=== PATIENT | female | born 1995 | race Caucasian/White ===

== ENCOUNTER 2019-11-11 21:40 | Observation (INO) ==
[2019-11-11 22:19] LABS: Amorphous Sediment,Urine Few per hpf (None-Few); Bacteria,Urine Few per hpf (None-Few); Bilirubin,Urine Negative (Negative); Blood,Urine Negative (Negative); Clarity,Urine Turbid (Clear); Color,Urine Light-Yellow (Yellow); Glucose,Urine (UA) Normal (Normal); Ketones,Urine Negative (Negative); Leukocyte Esterase,Urine Large (Negative); Mucus,Urine Few per lpf (None-Few); Nitrite,Urine Negative (Negative); Protein,Urine Trace mg/dL (Neg-Trace); Specific Gravity,Urine 1.017 (1.010-1.025); Squamous Epithelial Cell,Urine Moderate per hpf (None-Few); Urobilinogen,Urine Normal (Normal); WBC,Urine 30-50 per hpf (0-3)
[2019-11-11 22:26] LABS: Amphetamine Screen,Urine Negative ng/mL (Cutoff=1000)
[2019-11-11 22:27] LABS: Barbiturate Screen,Urine Negative ng/mL (Cutoff=200); Benzodiazepines Screen,Urine Negative ng/mL (Cutoff=200); Cannabinoid Screen,Urine Positive ng/mL (Cutoff = 50); Cocaine Screen,Urine Negative ng/mL (Cutoff= 300); Opiate Screen,Urine Negative ng/mL (Cutoff=300); Phencyclidine Screen,Urine Negative ng/mL (Cutoff=25)
[2019-11-11 23:51] LABS: Candida DNA DETECTED (Not Detect); Gardnerella DNA Not Detected (Not Detect); Trichomonas DNA DETECTED (Not Detect)
== END 2019-11-11 22:36 | disposition home or self-care (01) ==
LOC: 1NENULAB
PROVIDERS: ADMIT Student in an Organized Health Care Education/Training Program; ATTEND Student in an Organized Health Care Education/Training Program

== ENCOUNTER 2019-11-29 06:00 | Inpatient (IN) ==
[2019-11-29] MEDS ORDERED: Naloxone 0.4 MG/ML INJ IVP PRN (06:20)
[2019-11-29] MEDS ORDERED: Famotidine 20 MG/2 ML VIAL IVP PRN (06:20)
[2019-11-29] MEDS ORDERED: miSOPROStoL 25 MCG TABLET PO PRN (06:20)
[2019-11-29] MEDS ORDERED: Ondansetron 4 MG/2 ML VIAL IVP PRN (06:20)
[2019-11-29] MEDS ORDERED: Lidocaine 1% 20 ML MDV INFILT PRN (06:20)
[2019-11-29] MEDS ORDERED: Metoclopramide 10 MG/2 ML VIAL IVP PRN (06:20)
[2019-11-29] MEDS ORDERED: Azithromycin 500 MG in 0.9 % Sodium Chloride 250 ML IVPB ONE (06:20)
[2019-11-29] MEDS ORDERED: Ringers Solution, Lactated 1,000 ML IVC SCH (06:30)
[2019-11-29] MEDS ORDERED: Heparin 1,000 UNITS/500 mL 500 ML ONE (08:05)
[2019-11-29] MEDS ORDERED: Oxytocin 20 units/ LR 1000 mL 20 UNIT/1,000 ML BAG IVC SCH ×2 (08:30→18:18)
[2019-11-29 08:39] LABS: VBG Base Excess -2 mEq/L; VBG Chloride 104 mEq/L (98-107); VBG Glucose 93 mg/dl (65-95); VBG HCO3 21 mEq/L (21-27); VBG Oxygen Saturation 86 %; VBG PCO2 29 mmHg (41-51); VBG PH 7.45 pH Units (7.32-7.42); VBG PO2 47 mmHg (25-50); VBG Total CO2 21 mEq/L
[2019-11-29 09:07] LABS: Basophils % 0.2 %; Eosinophils # 0.1 K/mcL (0.0-0.6); Eosinophils % 0.6 %; Hematocrit 28.1 % (35.3-44.9); Hemoglobin 8.8 g/dL (11.5-15.4); Immature Granulocytes % 0.9 % (0-4); Lymphocytes # 1.7 K/mcL (0.6-4.6); Lymphocytes % 18.2 %; Mean Corpuscular HGB Conc 31.3 g/dL (31.6-35.5); Mean Corpuscular Hemoglobin 25.2 pg (28.0-33.3); Mean Corpuscular Volume 80.5 fL (83.0-100.0); Mean Platelet Volume 10.3 fL (9.4-12.4); Monocytes # 0.7 K/mcL (0.0-1.3); Neutrophils # 6.9 K/mcL (1.6-8.9); Nucleated Red Blood Cells 0.2 /100 WBC (0); Platelet Count 304 K/mcL (140-400); Red Blood Count 3.49 M/mcL (3.82-4.97); Red Cell Distribution Width 14.9 % (11.5-14.5); Segmented Neutrophils % 73.1 %; White Blood Count 9.4 K/mcL (4.3-11.1)
[2019-11-29] MEDS ORDERED: Lidocaine -MPF 2% 5 ML VIAL ONE (10:28)
[2019-11-29] MEDS ORDERED: Bupivacaine-MPF 0.25% 10 ML VIAL EP ONE (10:42)
[2019-11-29] MEDS ORDERED: *HR* FentaNYL (PF) 100 MCG/2 ML VIAL EP ONE (10:42)
[2019-11-29] MEDS ORDERED: EPHEDrine 50 MG/ML VIAL IVP PRN (10:42)
[2019-11-29] MEDS ORDERED: Epidural Premix (fent/bupiv) 110 ML EP SCH (10:45)
[2019-11-29] MEDS ORDERED: Bupivacaine-MPF 0.25% 10 ML VIAL ONE (11:01)
[2019-11-29] MEDS ORDERED: *HR* FentaNYL (PF) 100 MCG/2 ML VIAL ONE (11:01)
[2019-11-29 13:50] LABS: Amphetamine Screen,Urine Negative ng/mL (Cutoff=1000); Barbiturate Screen,Urine Negative ng/mL (Cutoff=200); Benzodiazepines Screen,Urine Negative ng/mL (Cutoff=200); Cannabinoid Screen,Urine Negative ng/mL (Cutoff = 50); Cocaine Screen,Urine Negative ng/mL (Cutoff= 300); Opiate Screen,Urine Negative ng/mL (Cutoff=300); Phencyclidine Screen,Urine Negative ng/mL (Cutoff=25)
[2019-11-29] MEDS ORDERED: Rho Immune Globulin 1,500 UNIT SYRINGE IM PRN (18:18)
[2019-11-29] MEDS ORDERED: Benzocaine/Menthol 56 GM AEROSOL SPRAY TP PRN (18:18)
[2019-11-29] MEDS ORDERED: Acetaminophen 325 MG TABLET PO PRN (18:18)
[2019-11-29] MEDS ORDERED: Lanolin 7 G OINT...G. TP PRN (18:18)
[2019-11-30] MEDS: Ibuprofen 600 MG TABLET PO PRN ×2 (02:12→14:47)
[2019-11-30 06:29] LABS: Basophils % 0.1 %; Eosinophils # 0.1 K/mcL (0.0-0.6); Eosinophils % 1.1 %; Hematocrit 24.2 % (35.3-44.9); Hemoglobin 7.4 g/dL (11.5-15.4); Immature Granulocytes % 0.7 % (0-4); Lymphocytes # 1.9 K/mcL (0.6-4.6); Lymphocytes % 19.5 %; Mean Corpuscular HGB Conc 30.6 g/dL (31.6-35.5); Mean Corpuscular Hemoglobin 24.4 pg (28.0-33.3); Mean Corpuscular Volume 79.9 fL (83.0-100.0); Mean Platelet Volume 10.7 fL (9.4-12.4); Monocytes # 0.6 K/mcL (0.0-1.3); Monocytes % 6.5 %; Neutrophils # 7.1 K/mcL (1.6-8.9); Nucleated Red Blood Cells 0.2 /100 WBC (0); Platelet Count 253 K/mcL (140-400); Red Blood Count 3.03 M/mcL (3.82-4.97); Segmented Neutrophils % 72.1 %; White Blood Count 9.9 K/mcL (4.3-11.1)
[2019-11-30] MEDS: Prenatal Vit/FA 1 EACH TABLET PO SCH (07:40)
[2019-11-30] MEDS ORDERED: NON-FORMULARY MEDICATION 1 EACH EACH (Prenatal Vits96/Iron Fum/Folic [Prenatal Tablet] 1 E PO SCH (09:00)
[2019-12-01 07:45] VITALS: BP 119/80
[2019-12-01] MEDS: Prenatal Vit/FA 1 EACH TABLET PO SCH (07:53)
[2019-12-01] MEDS: Ibuprofen 600 MG TABLET PO PRN (07:54)
== END 2019-12-01 10:48 | disposition home or self-care (01) | DRG 560 ==
LOC: 1NENULAB 06:19 → 1NENUOBS 18:17
PROVIDERS: ADMIT Obstetrics & Gynecology; ATTEND Obstetrics & Gynecology

== ENCOUNTER 2020-12-20 18:45 | Inpatient (IN) ==
[~2020-12-20 18:45] MED LIST: *HR* Oxytocin 10 UNIT/ML VIAL IM ONE; Famotidine 20 MG/2 ML VIAL IVP PRN; Methylergonovine 0.2 MG/ML AMPUL IM ONE; Metoclopramide 10 MG/2 ML VIAL IVP PRN; Naloxone 0.4 MG/ML INJ IVP PRN; Ondansetron 4 MG/2 ML VIAL IVP PRN; Ringers Solution, Lactated 1,000 ML IVC SCH; Ringers Solution, Lactated 1,000 ML ONE; miSOPROStoL 100 MCG TABLET RC ONE
[2020-12-20] MEDS ORDERED: *HR* FentaNYL (PF) 100 MCG/2 ML VIAL ONE ×2 (19:02→20:33)
[2020-12-20] MEDS ORDERED: Bupivacaine-MPF 0.25% 10 ML VIAL ONE (19:02)
[2020-12-20 19:40] LABS: Amphetamine Screen,Urine Negative ng/mL (Cutoff=1000); Barbiturate Screen,Urine Negative ng/mL (Cutoff=200); Benzodiazepines Screen,Urine Negative ng/mL (Cutoff=200); Cannabinoid Screen,Urine Positive ng/mL (Cutoff = 50); Cocaine Screen,Urine Negative ng/mL (Cutoff= 300); Opiate Screen,Urine Negative ng/mL (Cutoff=300); Phencyclidine Screen,Urine Negative ng/mL (Cutoff=25)
[2020-12-20] MEDS ORDERED: *HR* Propofol 200 MG/20 ML VIAL IVP ONE (20:33)
[2020-12-20] MEDS ORDERED: *HR* Succinylcholine 200 MG/10 ML VIAL IVP ONE ×2 (20:33)
[2020-12-20] MEDS ORDERED: *HR* Rocuronium Bromide 50 MG/5 ML VIAL ONE (20:34)
[2020-12-20] MEDS ORDERED: Ondansetron 4 MG/2 ML VIAL ONE (20:51)
[2020-12-21] MEDS ORDERED: Rho Immune Globulin 1,500 UNIT SYRINGE IM PRN (00:21)
[2020-12-21] MEDS ORDERED: Lanolin 7 G OINT...G. TP PRN (00:21)
[2020-12-21] MEDS ORDERED: Benzocaine/Menthol 56 GM AEROSOL SPRAY TP PRN (00:21)
[2020-12-21] MEDS ORDERED: Ondansetron ODT 4 MG TAB.RAPDIS SL PRN (00:21)
[2020-12-21] MEDS: Oxytocin 20 units/ LR 1000 mL 20 UNIT/1,000 ML BAG IVC SCH ×2 (01:09→09:12)
[2020-12-21] MEDS: Acetaminophen 325 MG TABLET PO SCH ×3 (01:12→17:06)
[2020-12-21] MEDS: Ibuprofen 600 MG TABLET PO SCH ×3 (01:13→17:07)
[2020-12-21] MEDS: Prenatal Vit/FA 1 EACH TABLET PO SCH (09:11)
[2020-12-21 09:46] LABS: Eosinophils % 0.1 %
[2020-12-21 09:47] LABS: Basophils % 0.2 %; Hematocrit 27.4 % (35.3-44.9); Hemoglobin 8.5 g/dL (11.5-15.4); Immature Granulocytes % 0.7 % (0-4); Immature Platelets 6.6 % (1.1-6.1); Lymphocytes # 1.4 K/mcL (0.6-4.6); Lymphocytes % 10.7 %; Mean Corpuscular Hemoglobin 24.4 pg (28.0-33.3); Mean Corpuscular Volume 78.5 fL (83.0-100.0); Mean Platelet Volume 10.8 fL (9.4-12.4); Monocytes # 0.8 K/mcL (0.0-1.3); Monocytes % 6.2 %; Platelet Count 267 K/mcL (140-400); Red Blood Count 3.49 M/mcL (3.82-4.97); Red Cell Distribution Width 14.4 % (11.5-14.5); Segmented Neutrophils % 82.1 %; White Blood Count 13.3 K/mcL (4.3-11.1)
[2020-12-21 10:05] LABS: Neutrophils # 10.9 K/mcL (1.6-8.9)
[2020-12-21 10:06] LABS: Anisocytosis 1+ (Not Present); Platelet Estimate Normal (Normal)
[2020-12-22] MEDS: Ibuprofen 600 MG TABLET PO SCH (05:14)
[2020-12-22] MEDS: Acetaminophen 325 MG TABLET PO SCH (05:14)
[2020-12-22] MEDS: Prenatal Vit/FA 1 EACH TABLET PO SCH (07:35)
[2020-12-22 08:08] VITALS: BP 116/76; PULSE 78; TEMP 98; O2SAT 99
== END 2020-12-22 11:20 | disposition home or self-care (01) | DRG 541 ==
LOC: 1NENULAB → 1NENUOBS 12-21 00:21
PROVIDERS: ADMIT Obstetrics & Gynecology; ATTEND Obstetrics & Gynecology

== ENCOUNTER 2021-01-01 11:39 | Observation (INO) ==
[~2021-01-01 11:39] MED LIST changes: -*HR* Oxytocin 10 UNIT/ML VIAL IM ONE; -Famotidine 20 MG/2 ML VIAL IVP PRN; -Metoclopramide 10 MG/2 ML VIAL IVP PRN; -Naloxone 0.4 MG/ML INJ IVP PRN; -Ondansetron 4 MG/2 ML VIAL IVP PRN; -Ringers Solution, Lactated 1,000 ML IVC SCH; -Ringers Solution, Lactated 1,000 ML ONE; -miSOPROStoL 100 MCG TABLET RC ONE
[2021-01-01 13:05] LABS: Basophils % 0.1 %; Segmented Neutrophils % 82.7 %; White Blood Count 11.2 K/mcL (4.3-11.1)
[2021-01-01 13:06] LABS: Eosinophils % 0.3 %; Hematocrit 17.3 % (35.3-44.9); Immature Granulocytes % 1.3 % (0-4); Lymphocytes % 8.7 %; Mean Corpuscular HGB Conc 28.9 g/dL (31.6-35.5); Mean Corpuscular Hemoglobin 23.4 pg (28.0-33.3); Mean Corpuscular Volume 80.8 fL (83.0-100.0); Mean Platelet Volume 9.7 fL (9.4-12.4); Monocytes # 0.8 K/mcL (0.0-1.3); Monocytes % 6.9 %; Neutrophils # 9.3 K/mcL (1.6-8.9); Platelet Count 447 K/mcL (140-400); Red Blood Count 2.14 M/mcL (3.82-4.97); Red Cell Distribution Width 15.9 % (11.5-14.5)
[2021-01-01] MEDS: 0.9 % Sodium Chloride 1,000 ML IVC ONE ×2 (13:11→16:08)
[2021-01-01 13:13] LABS: Prothrombin Time 11.3 Seconds (9.4-12.1)
[2021-01-01 13:16] LABS: Activated Partial Thrombo Time 25.5 Seconds (26.0-36.0)
[2021-01-01 13:18] LABS: Alanine Aminotransferase 12 Units/L (7-52); Albumin 3.3 g/dL (3.5-5.7); Albumin/Globulin Ratio 1.1 (1.1-2.2); Alkaline Phosphatase 185 Units/L (34-104); Aspartate Amino Transferase 18 Units/L (13-39); BUN/Creatinine Ratio 23 (6-26); Bilirubin,Direct 0.1 mg/dL (0.0-0.2); Bilirubin,Indirect 0.2 mg/dL (0.0-1.0); Bilirubin,Total 0.3 mg/dL (0.3-1.0); Blood Urea Nitrogen 9 mg/dL (6-20); Calcium 8.5 mg/dL (8.6-10.3); Carbon Dioxide 20 mEq/L (23-29); Chloride 102 mEq/L (98-107); Globulin 3.1 g/dL (2.4-3.5); Glucose 84 mg/dL (70-105); Osmolality,Calculated 274 (280-300); Potassium 4.2 mEq/L (3.5-5.1); Sodium 133 mEq/L (136-145); Total Protein 6.4 g/dL (6.4-8.9); eGFR For African Americans > 60 (> 60); eGFR For Non-African Americans > 60 (> 60)
[2021-01-01 14:02] LABS: Color,Urine LIGHT YELLOW (Yellow)
[2021-01-01 14:03] LABS: Bilirubin,Urine Negative (Negative); Blood,Urine Moderate (Negative); Clarity,Urine Clear (Clear); Glucose,Urine (UA) Normal (Normal); Ketones,Urine Negative (Negative); Specific Gravity,Urine 1.016 (1.010-1.025)
[2021-01-01 14:04] LABS: Leukocyte Esterase,Urine Negative (Negative); Nitrite,Urine Negative (Negative); Protein,Urine Trace mg/dL (Neg-Trace); Urobilinogen,Urine Normal (Normal)
[2021-01-01 14:05] LABS: Bacteria,Urine Few per hpf (None-Few); Mucus,Urine Few per lpf (None-Few); RBC,Urine 50-100 per hpf (0-3); Squamous Epithelial Cell,Urine Few per hpf (None-Few)
[2021-01-01 14:20] LABS: Hypochromasia Present (Not Present); Toxic Granulation Present (Not Present)
[2021-01-01] MEDS ORDERED: 0.9 % Sodium Chloride 1,000 ML ONE (15:49)
[2021-01-01] MEDS ORDERED: *HR* HYDROmorphone PF 0.5 MG/0.5 ML SYRINGE IVP PRN (16:41)
[2021-01-01] MEDS ORDERED: *HR* FentaNYL (PF) 100 MCG/2 ML VIAL IVP PRN (16:41)
[2021-01-01] MEDS ORDERED: Lidocaine -MPF 2% 5 ML VIAL ONE (16:43)
[2021-01-01] MEDS ORDERED: *HR* FentaNYL (PF) 100 MCG/2 ML VIAL ONE ×2 (16:43→17:56)
[2021-01-01] MEDS ORDERED: *HR* Midazolam HCl 2 MG/2 ML VIAL ONE (16:44)
[2021-01-01] MEDS ORDERED: *HR* Rocuronium Bromide 50 MG/5 ML VIAL ONE (16:45)
[2021-01-01] MEDS ORDERED: *HR* Succinylcholine 200 MG/10 ML VIAL IVP ONE (16:45)
[2021-01-01] MEDS ORDERED: *HR* Propofol 200 MG/20 ML VIAL IVP ONE (16:45)
[2021-01-01] MEDS ORDERED: *HR* Etomidate 40 MG/20 ML VIAL IVP ONE (16:47)
[2021-01-01] MEDS ORDERED: *HR* Phenylephrine 10 MG/ML VIAL ONE (16:48)
[2021-01-01] MEDS ORDERED: Ondansetron 4 MG/2 ML VIAL ONE (17:56)
[2021-01-01] MEDS ORDERED: *HR* HYDROMORPHONE 2 MG/ML VIAL ONE (17:57)
[2021-01-01] MEDS ORDERED: Doxycycline 100 MG in 0.9 % Sodium Chloride Mini Bag 100 ML IVPB SCH (18:00)
[2021-01-01] MEDS ORDERED: Sugammadex Sodium 200 MG/2 ML VIAL IV ONE (18:05)
[2021-01-01] MEDS ORDERED: Acetaminophen IV 1,000 MG/100 ML BAG IVPB ONE (18:54)
[2021-01-01] MEDS ORDERED: Ringers Solution, Lactated 1,000 ML IVC SCH ×2 (19:18→19:32)
[2021-01-01 20:49] LABS: Hematocrit 29.9 % (35.3-44.9); Mean Corpuscular HGB Conc 32.4 g/dL (31.6-35.5); Mean Corpuscular Volume 86.2 fL (83.0-100.0); Mean Platelet Volume 9.6 fL (9.4-12.4); Platelet Count 336 K/mcL (140-400); Red Blood Count 3.47 M/mcL (3.82-4.97); Red Cell Distribution Width 16.6 % (11.5-14.5)
[2021-01-01 20:51] LABS: Hemoglobin 9.7 g/dL (11.5-15.4); White Blood Count 17.9 K/mcL (4.3-11.1)
[2021-01-01 21:21] VITALS: O2SAT 100
[2021-01-01] MEDS ORDERED: Acetaminophen 325 MG TABLET PO PRN (22:49)
[2021-01-01] MEDS ORDERED: Famotidine 20 MG TABLET PO PRN (22:49)
[2021-01-01] MEDS ORDERED: Ibuprofen 600 MG TABLET PO PRN (22:49)
[2021-01-02] MEDS ORDERED: Doxycycline 100 MG CAPSULE PO SCH (05:00)
[2021-01-02 07:55] VITALS: BP 100/65; PULSE 82; TEMP 97.4
== END 2021-01-02 11:20 | disposition home or self-care (01) ==
LOC: EMEROOARM 11:39 → 1NENUOBS 11:39
PROVIDERS: ADMIT Student in an Organized Health Care Education/Training Program; ATTEND Student in an Organized Health Care Education/Training Program

== ENCOUNTER 2021-11-04 17:10 | Observation (INO) ==
[2021-11-04 15:20] LABS: Hematocrit 21.5 % (35.3-44.9); Lymphocytes # 0.3 K/mcL (0.6-4.6); Lymphocytes % 9.3 %; Mean Corpuscular Hemoglobin 27.1 pg (28.0-33.3); Mean Corpuscular Volume 82.1 fL (83.0-100.0); Mean Platelet Volume 10.1 fL (9.4-12.4); Monocytes # 0.2 K/mcL (0.0-1.3); Monocytes % 7.3 %; Neutrophils # 2.6 K/mcL (1.6-8.9); Platelet Count 146 K/mcL (140-400); Red Blood Count 2.62 M/mcL (3.82-4.97); Segmented Neutrophils % 82.4 %
[2021-11-04 15:21] LABS: Hemoglobin 7.1 g/dL (11.5-15.4); White Blood Count 3.1 K/mcL (4.3-11.1)
[2021-11-04 15:42] LABS: Alanine Aminotransferase 8 Units/L (7-52); Albumin/Globulin Ratio 1.2 (1.1-2.2); Alkaline Phosphatase 68 Units/L (34-104); Aspartate Amino Transferase 13 Units/L (13-39); BUN/Creatinine Ratio 24 (6-26); Bilirubin,Total 0.3 mg/dL (0.3-1.0); Blood Urea Nitrogen 7 mg/dL (6-20); Calcium 7.9 mg/dL (8.6-10.3); Carbon Dioxide 22 mEq/L (23-29); Chloride 106 mEq/L (98-107); Globulin 2.5 g/dL (2.4-3.5); Glucose 93 mg/dL (70-105); Osmolality,Calculated 274 (280-300); Potassium 2.8 mEq/L (3.5-5.1); Sodium 133 mEq/L (136-145); Total Protein 5.5 g/dL (6.4-8.9)
[2021-11-04 16:06] LABS: Platelet Estimate Normal (Normal)
[2021-11-04 16:18] LABS: Bilirubin,Urine Negative (Negative); Blood,Urine Small (Negative); Clarity,Urine Clear (Clear); Color,Urine Light-Yellow (Yellow); Glucose,Urine (UA) Normal (Normal); Ketones,Urine 10 mg/dL (Negative); Leukocyte Esterase,Urine Negative (Negative); Mucus,Urine Few per lpf (None-Few); Nitrite,Urine Negative (Negative); PH,Urine 6.5 pH Units (5.0-8.0); Protein,Urine Trace mg/dL (Neg-Trace); RBC,Urine 0-3 per hpf (0-3); Specific Gravity,Urine 1.015 (1.010-1.025); Squamous Epithelial Cell,Urine Few per hpf (None-Few); Urobilinogen,Urine Normal (Normal)
[2021-11-04] MEDS: Cyanocobalamin (B-12) 1,000 MCG/ML VIAL SQ SCH (16:36)
[~2021-11-04 17:10] MED LIST changes: +*HR* Phytonadione 5 MG TABLET PO ONE; -Methylergonovine 0.2 MG/ML AMPUL IM ONE
[2021-11-04] MEDS ORDERED: 0.9 % Sodium Chloride 500 ML ONE (19:21)
[2021-11-05] MEDS ORDERED: 0.9 % Sodium Chloride 250 ML ONE (00:15)
[2021-11-05] MEDS: Ringers Solution, Lactated 1,000 ML IVC SCH ×2 (03:54→12:09)
[2021-11-05] MEDS: Cyanocobalamin (B-12) 1,000 MCG/ML VIAL SQ SCH (09:25)
[2021-11-05 09:59] LABS: Basophils % 0.2 %; Eosinophils % 0.2 %; Hematocrit 27.7 % (35.3-44.9); Immature Granulocytes % 0.5 % (0-4); Lymphocytes # 0.7 K/mcL (0.6-4.6); Lymphocytes % 15.2 %; Mean Corpuscular HGB Conc 33.2 g/dL (31.6-35.5); Mean Corpuscular Hemoglobin 27.4 pg (28.0-33.3); Mean Corpuscular Volume 82.4 fL (83.0-100.0); Mean Platelet Volume 10.1 fL (9.4-12.4); Monocytes # 0.4 K/mcL (0.0-1.3); Monocytes % 8.2 %; Neutrophils # 3.3 K/mcL (1.6-8.9); Platelet Count 149 K/mcL (140-400); Red Blood Count 3.36 M/mcL (3.82-4.97); Red Cell Distribution Width 13.2 % (11.5-14.5); Segmented Neutrophils % 75.7 %; White Blood Count 4.4 K/mcL (4.3-11.1)
[2021-11-05 10:01] LABS: Hemoglobin 9.2 g/dL (11.5-15.4)
[2021-11-05 10:22] LABS: Alanine Aminotransferase 9 Units/L (7-52); Albumin 2.9 g/dL (3.5-5.7); Albumin/Globulin Ratio 1.2 (1.1-2.2); Alkaline Phosphatase 71 Units/L (34-104); Aspartate Amino Transferase 14 Units/L (13-39); BUN/Creatinine Ratio 18 (6-26); Bilirubin,Total 0.3 mg/dL (0.3-1.0); Blood Urea Nitrogen 6 mg/dL (6-20); Calcium 7.9 mg/dL (8.6-10.3); Carbon Dioxide 22 mEq/L (23-29); Chloride 106 mEq/L (98-107); Globulin 2.5 g/dL (2.4-3.5); Glucose 81 mg/dL (70-105); Osmolality,Calculated 275 (280-300); Potassium 2.8 mEq/L (3.5-5.1); Sodium 134 mEq/L (136-145); Total Protein 5.4 g/dL (6.4-8.9)
[2021-11-05] MEDS ORDERED: Potassium Citrate 10 MEQ TABLET.ER PO SCH (11:30)
[2021-11-05] MEDS: Potassium Citrate 10 MEQ TABLET.ER PO SCH (17:23)
[2021-11-06] MEDS: Ringers Solution, Lactated 1,000 ML IVC SCH ×2 (01:17→20:06)
[2021-11-06 04:49] LABS: Hematocrit 27.6 % (35.3-44.9); Hemoglobin 9.1 g/dL (11.5-15.4); Lymphocytes # 0.9 K/mcL (0.6-4.6); Mean Corpuscular Hemoglobin 27.5 pg (28.0-33.3); Mean Corpuscular Volume 83.4 fL (83.0-100.0); Mean Platelet Volume 10.2 fL (9.4-12.4); Platelet Count 156 K/mcL (140-400); Red Blood Count 3.31 M/mcL (3.82-4.97); Red Cell Distribution Width 13.4 % (11.5-14.5); White Blood Count 4.6 K/mcL (4.3-11.1)
[2021-11-06 04:56] LABS: BUN/Creatinine Ratio 14 (6-26); Blood Urea Nitrogen 5 mg/dL (6-20); Carbon Dioxide 22 mEq/L (23-29); Chloride 105 mEq/L (98-107); Glucose 81 mg/dL (70-105); Osmolality,Calculated 276 (280-300); Potassium 3.1 mEq/L (3.5-5.1); Sodium 135 mEq/L (136-145)
[2021-11-06 05:27] LABS: Monocytes # 0.2 K/mcL (0.0-1.3); Neutrophils # 3.5 K/mcL (1.6-8.9)
[2021-11-06 05:28] LABS: Platelet Estimate Normal (Normal)
[2021-11-06 07:43] LABS: Magnesium 1.5 mg/dL (1.6-2.6)
[2021-11-06] MEDS: Potassium Citrate 10 MEQ TABLET.ER PO SCH ×3 (08:14→20:04)
[2021-11-06] MEDS ORDERED: Thiamine (B-1) 100 MG, Folic Acid 1 MG, MVI, adult with vitamin K 10 ML in 0.9 % Sodi... IVPB ONE (09:30)
[2021-11-06 10:18] LABS: Adenovirus Not Detected (Not Detect); Bordetella Pertussis Not Detected (Not Detect); Chlamydophila pneumoniae Not Detected (Not Detect); Coronavirus 229E Not Detected (Not Detect); Coronavirus HKU1 Not Detected (Not Detect); Coronavirus NL63 Not Detected (Not Detect); Coronavirus OC43 Not Detected (Not Detect); Human Metapneumovirus Not Detected (Not Detect); Human Rhinovirus/Enterovirus Not Detected (Not Detect); Influenza A Subtype 2009 H1 Not Detected (Not Detect); Influenza B Not Detected (Not Detect); Mycoplasma pneumoniae Not Detected (Not Detect); Parainfluenza Virus 1 Not Detected (Not Detect); Parainfluenza Virus 2 Not Detected (Not Detect); Parainfluenza Virus 3 Not Detected (Not Detect); Parainfluenza Virus 4 Not Detected (Not Detect); Respiratory Syncytial Virus Not Detected (Not Detect); SARS-CoV-2 Not Detected (Not Detect)
[2021-11-07] MEDS: Ringers Solution, Lactated 1,000 ML IVC SCH (04:05)
[2021-11-07 04:30] VITALS: TEMP 98.2
[2021-11-07 04:35] LABS: Basophils % 0.3 %; Eosinophils % 0.5 %; Hematocrit 27.1 % (35.3-44.9); Hemoglobin 8.9 g/dL (11.5-15.4); Immature Granulocytes % 0.5 % (0-4); Lymphocytes # 1.3 K/mcL (0.6-4.6); Lymphocytes % 17.2 %; Mean Corpuscular HGB Conc 32.8 g/dL (31.6-35.5); Mean Corpuscular Hemoglobin 27.4 pg (28.0-33.3); Mean Corpuscular Volume 83.4 fL (83.0-100.0); Mean Platelet Volume 10.1 fL (9.4-12.4); Monocytes # 0.3 K/mcL (0.0-1.3); Monocytes % 4.2 %; Neutrophils # 5.7 K/mcL (1.6-8.9); Platelet Count 175 K/mcL (140-400); Red Blood Count 3.25 M/mcL (3.82-4.97); Red Cell Distribution Width 13.5 % (11.5-14.5); Segmented Neutrophils % 77.3 %
[2021-11-07 04:40] LABS: White Blood Count 7.4 K/mcL (4.3-11.1)
[2021-11-07 04:54] LABS: BUN/Creatinine Ratio 22 (6-26); Blood Urea Nitrogen 7 mg/dL (6-20); Calcium 8.1 mg/dL (8.6-10.3); Carbon Dioxide 23 mEq/L (23-29); Chloride 107 mEq/L (98-107); Glucose 85 mg/dL (70-105); Osmolality,Calculated 279 (280-300); Potassium 3.6 mEq/L (3.5-5.1); Sodium 136 mEq/L (136-145)
[2021-11-07 05:12] LABS: Platelet Estimate Normal (Normal)
[2021-11-07 07:28] VITALS: BP 107/61; PULSE 96; O2SAT 98
[2021-11-07] MEDS: Potassium Citrate 10 MEQ TABLET.ER PO SCH (08:07)
[2021-11-09 04:44] LABS: ANA IgG by ELISA NONE DETECTED (None Detected)
== END 2021-11-07 12:22 | disposition home or self-care (01) ==
LOC: 1NENULAB → 1NENUOBS 17:10
PROVIDERS: ADMIT Advanced Practice Midwife; ATTEND Advanced Practice Midwife